=== PATIENT | male | born 1935 | race Caucasian/White ===

== ENCOUNTER 2017-08-14 14:28 | Observation (INO) | payer OTHER ==
[~2017-08-14] VITALS: Ht 180.3 cm; Wt 124.7 kg
--- NOTE | ~2017-08-14 | HC ---
[facility] [place] [address] CONSULTATION Name: ANDRES ESTRADA Room #: 361-[facility] Caleb MKathleen#: [id number] Admission: 08/14/17 Attend Phys: Evangelina Shane Discharge: 08/15/17 Date of : 34 Report #: [id number] THIS REPORT FOR: //name// CC: Carl Mckeon FAM unknown PRIMARY CARE PHYSICIAN: Dr. Carl Mckeon. REFERRAL PHYSICIAN: Dr. Piyush Feliciano. REASON FOR REFERRAL: Ongoing management of chronic respiratory failure. HISTORY OF PRESENT ILLNESS: The patient is an 82-year-old -Ivorian male who was admitted with an obstruction of the Driver catheter. He has chronic respiratory failure, on nocturnal ventilation. A pulmonary consultation was requested. Details of his past medical history limited. We are awaiting records from [facility]. The patient has had a prolonged hospitalization in around 2017 due to respiratory complications. The patient subsequently underwent tracheostomy tube placement along with PEG tube. He is currently on nocturnal ventilation along with trach shield in the daytime. PAST MEDICAL HISTORY: Otherwise limited and as mentioned above. ALLERGIES: None to medications. MEDICATIONS: List reviewed in the MAR. FAMILY HISTORY: Unknown. SOCIAL HISTORY: He is with children. REVIEW OF SYSTEMS: Deferred as the patient is not verbal. PHYSICAL EXAMINATION: GENERAL: He is awake, in no apparent distress. He said he has a trach shield in place. He does not verbalize, does not answer to questions. VITAL SIGNS: Temperature is 100 degrees Fahrenheit, pulse is 80, respiratory rate is 20, blood pressure 110/71 mmHg, saturation 99%. HEENT: Unremarkable. NECK: Status post tracheostomy. CHEST: Breath sounds are fair with few scattered crackles. No wheezes. CARDIOVASCULAR: Normal S1, S2. There is no murmur or gallop. ABDOMEN: Soft, nontender. No organomegaly or masses felt. Status post PEG tube placement in the mid abdomen area. GENITOURINARY: Deferred. [facility] [address] [place] [address] CONSULTATION Name: ANDRES ESTRADA Room #: [address] [place] [address] Caleb M.R.#: [id number] Admission: 08/14/17 Attend Phys: Evangelina Shane Discharge: 08/15/17 Date of : 34 Report #: [id number] RECTAL: Deferred. EXTREMITIES: No edema, cyanosis or clubbing. LABORATORY DATA: Electrolytes are grossly unremarkable. Creatinine 1.0. WBC 12,300, hemoglobin 11.4. Chest x-ray is grossly unremarkable. Lung volumes are decreased bilaterally. Mild increase in cardiac silhouette. IMPRESSION: 1. Chronic respiratory failure, status post tracheostomy. He is on nocturnal ventilation, trach shield in the daytime. 2. Driver catheter obstruction. Status post Driver exchange earlier today. RECOMMENDATION: We will continue nocturnal ventilation, trach shield during the daytime. DVT and GI prophylaxis recommended. Thank you for this consultation. <ELECTRONICALLY SIGNED> By: Terry Mann MD 08/17/17 1407 1439 1808 Terry Mann MD /smith
--- NOTE | ~2017-08-14 | DSS ---
[facility] [place] [address] SHORT STAY SUMMARY Name: ANDRES ESTRADA Room #: 361-P [facility] Caleb MKathleen#: [id number] Admission: 08/14/17 Attend Phys: Evangelina Shane Discharge: 08/15/17 Date of : 34 Report #: [id number] THIS REPORT FOR: //name// CC: Carl HUNTER unknown CHIEF COMPLAINT: Driver obstruction. HISTORY OF PRESENT ILLNESS: The patient is an 82-year-old gentleman with respiratory failure and ventilator use from [facility], who was admitted for exchange of his Driver catheter. He had a long hospitalization at the end of 2016 due to respiratory failure requiring placement of a tracheostomy tube and PEG tube with ventilator use. He recently transferred about 2 weeks ago to [facility]. In recent days, he has had a lot of leakage around the Driver catheter with some purulent drainage, debris and blood at times. The staff was unable to exchange it, so he was admitted overnight for a Urology consultation due to the fact he was on a ventilator. PAST MEDICAL HISTORY: Chronic respiratory failure, ventilator dependent. PAST SURGICAL HISTORY: As above. FAMILY HISTORY: Unknown. SOCIAL HISTORY: Unknown. ALLERGIES: NONE. MEDICATIONS: Amlodipine, Risperdal, DuoNeb, Colace, metoprolol. REVIEW OF SYSTEMS: He is unable to give review. PHYSICAL EXAMINATION: VITAL SIGNS: Temperature 37.7, pulse 82, respirations 20, blood pressure 112/71, O2 sat 99% on ventilator. GENERAL: He is asleep. HEAD AND NECK: Unremarkable. Trach in place. LUNGS: Clear. HEART: Regular. ABDOMEN: Soft, normoactive bowel sounds. PEG tube. EXTREMITIES: No edema. HOSPITAL COURSE: He was brought in for Urology evaluation, Dr. Quintanilla saw him in consultation, was able to exchange the Driver catheter at the bedside. A urinalysis was obtained and culture sent. He had white cells and bacteria along with blood. Empiric Cipro was started. Basic chemistry was unremarkable. He remained on the ventilator with a chest x-ray showing no infiltrate. His other [facility] [address] [place] [address] SHORT STAY SUMMARY Name: ANDRES ESTRADA Room #: 361-P [facility] M.R.#: [id number] Admission: 08/14/17 Attend Phys: Evangelina Shane Discharge: 08/15/17 Date of : 34 Report #: [id number] home medications were continued. He otherwise had an uneventful hospital course. DISPOSITION: He will be transferred back to [facility] on the ventilator status, resumption of diet and tube feeding. ACTIVITY: Bed rest and followup with Dr. Mckeon. DISCHARGE MEDICATIONS: He will resume all usual medications plus Cipro 500 mg twice a day for 7 days pending culture results. PROGNOSIS: Overall, prognosis is guarded due to his chronic respiratory failure. <ELECTRONICALLY SIGNED> By: Piyush Feliciano MD 08/16/17 1000 1126 1140 Piyush Feliciano MD /smith
--- NOTE | ~2017-08-14 | HC ---
[facility] [place] [address] CONSULTATION Name: ANDRES ESTRADA Room #: 361-P [facility] M.R.#: [id number] Admission: 08/14/17 Attend Phys: Evangelina Shane Discharge: Date of : 34 Report #: [id number] THIS REPORT FOR: //name// CC: Carl HUNTER unknown CHIEF COMPLAINT: Driver catheter. HISTORY OF PRESENT ILLNESS: The patient is an 82-year-old gentleman who is being seen today at the request of Dr. Feliciano for Driver catheter exchange. He was transferred from [facility] with a history of difficult catheter placement. No other history was provided. His Luda said the catheter had been in since April, although the nurses told me it had been in for about 2 weeks. On exam, he is on a ventilator. He is uncircumcised, normal phallus, no acute scrotal or penile pathology. There is an indwelling Driver catheter draining with purulent urine in the tubing. I deflated the balloon and under sterile conditions, I placed a 20-Croatian catheter into the bladder. I obtained about 1200 mL of urine, first 1100 mL was clear and the last 100 mL was purulent. I irrigated the ____ clear, 20 mL of sterile water was placed in the balloon. A drainage bag was applied. Going forward, I recommend the catheter be irrigated as needed. Certainly, this can be accomplished by the nurses and the nurses can exchange the Driver catheter in 3-4 weeks. <ELECTRONICALLY SIGNED> By: Piyush Quintanilla MD 08/15/17 1241 [id number] Piyush Quintanilla MD /nt
[2017-08-14] MEDS ORDERED: AMLODIPINE BESYL5 M1 PO (15:49)
[2017-08-14] MEDS ORDERED: PEPCID20 MG PO (15:49)
[2017-08-14] MEDS ORDERED: RISPERDAL 1 MG T1 MG PO (15:50)
[2017-08-14] MEDS ORDERED: APAP650 PO (15:51)
[2017-08-14] MEDS ORDERED: DUONEB 2.5-0.5 M3 ML INH (15:52)
[2017-08-14] MEDS ORDERED: ALBUTEROL2.5 MG/31 INH (15:55)
[2017-08-14] MEDS ORDERED: COLACE100 MG PO (15:56)
[2017-08-14] MEDS ORDERED: LOPRESSOR25 PO (15:57)
[2017-08-14 18:12] LABS: HEMATOCRIT 35.7 % (42.0-52.0); HEMOGLOBIN 11.4 gm/dL (14.0-18.0); MCH 27.3 pg (26.0-34.0); MCHC 31.8 g/dL (28.0-37.0); MCV 85.7 fL (80.0-100.0); RBC 4.17 mil/uL (4.50-6.00); RDW 16.4 % (10.5-14.5); WBC 12.3 thou/uL (4.0-11.0)
[2017-08-14 18:17] LABS: CALCIUM 10.1 mg/dL (8.5-10.1); POTASSIUM 4.1 mmol/L (3.5-5.1)
[2017-08-14 19:28] VITALS: BP 143/84
[2017-08-15 00:05] VITALS: BP 107/77
[2017-08-15 00:17] LABS: BACTERIA-REFLEX >30 Many /HPF (None Seen); URINE CLARITY TURBID; URINE RBC >20 Many /HPF (0-2); URINE WBC-REFLEX >25 Many /HPF (0-5)
[2017-08-15 00:18] LABS: CRYSTALS None Seen /LPF (None Seen)
[2017-08-15 00:19] LABS: CASTS None Seen /LPF (None Seen); SQUAMOUS None Seen /LPF (0-3)
[2017-08-15 00:20] LABS: URINE COLOR RED
[2017-08-15 00:21] LABS: URINE GLUCOSE-RANDOM* NEGATIVE (Negative)
[2017-08-15 00:22] LABS: URINE BILIRUBIN NEGATIVE (Negative); URINE BLOOD 3+ (Negative); URINE KETONES NEGATIVE (Negative)
[2017-08-15 00:23] LABS: URINE LEUKOCYTES-REFLEX 3+ (Negative); URINE NITRITE-REFLEX NEGATIVE (Negative); URINE PROTEIN (DIPSTICK) 3+ (Negative); URINE UROBILINOGEN 0.2 E.U./dl (0.2-1.0)
[2017-08-15 03:29] VITALS: BP 106/73
[2017-08-15 07:54] VITALS: BP 112/71
[2017-08-15] MEDS ORDERED: CIPRO500 MG PO (11:21)
[2017-08-15] MEDS ORDERED: ACETAMINOPHEN325 M1 PO (11:21)
== END 2017-08-15 14:55 ==
LOC: 4E 14:28 → 3W 14:28
PROVIDERS: Internal Medicine Geriatric Medicine
DX: T83.098A Other mechanical complication of other urinary catheter, initial encounter (principal); N40.0 Benign prostatic hyperplasia without lower urinary tract symptoms; J96.10 Chronic respiratory failure, unspecified whether with hypoxia or hypercapnia; E66.9 Obesity, unspecified; Z68.38 Body mass index [BMI] 38.0-38.9, adult; Z93.0 Tracheostomy status; Z99.11 Dependence on respirator [ventilator] status

== ENCOUNTER 2017-12-24 03:16 | Emergency (ER) | payer OTHER ==
[~2017-12-24] VITALS: Ht 185.4 cm; Wt 113.4 kg
[~2017-12-24 03:16] MED LIST: ACETAMINOP160 MG/51 PER TUBE; ACETAMINOPHEN325 M1 PO; ALBUTEROL2.5 MG/31 INH; AMLODIPINE BESYL5 M1 PO; AMOXICILLIN 50500 M1 PO; APAP650 PO; CIPRO500 MG PO; COLACE100 MG PO; DUONEB 2.5-0.5 M3 ML INH; ENOXAPARIN40 MG/0.1 SUBQ; JEVITY 1.5 CAL237 ML PER TUBE; LOPRESSOR25 PER TUBE; MIRALAX17 GM PER TUBE; NOVOLOG100 UNIT/1 SUBQ; PEPCID20 MG PER TUBE; PEPCID20 MG PO; RISPERDAL 1 MG T1 MG PO; SILACE50 MG/5 ML PER TUBE
[2017-12-24 04:23] LABS: URINE BLOOD 3+ (Negative); URINE CLARITY CLOUDY; URINE COLOR RED; URINE GLUCOSE-RANDOM* NEGATIVE (Negative); URINE KETONES TRACE (Negative); URINE PROTEIN (DIPSTICK) 3+ (Negative)
[2017-12-24 04:33] LABS: ICTOTEST (BILI CONFIRMATORY) Negative (Negative); URINE BILIRUBIN NEGATIVE (Negative); URINE LEUKOCYTES-REFLEX 3+ (Negative); URINE NITRITE-REFLEX POSITIVE (Negative)
[2017-12-24 04:34] LABS: CASTS None Seen /LPF (None Seen); MUCUS 0-3 Light strn/LPF (None Seen); SQUAMOUS None Seen /LPF (0-3)
[2017-12-24 04:35] LABS: BACTERIA-REFLEX 1-9 Few /HPF (None Seen); CRYSTALS None Seen /LPF (None Seen); URINE RBC >20 Many /HPF (0-2); URINE WBC-REFLEX >25 Many /HPF (0-5); WBC CLUMPS Moderate (None Seen)
== END 2017-12-24 07:37 | disposition home or self-care (01) ==
LOC: ER 03:16
PROVIDERS: Emergency Medicine
DX: R31.9 Hematuria, unspecified (principal); T83.098A Other mechanical complication of other urinary catheter, initial encounter; Z86.73 Personal history of transient ischemic attack (TIA), and cerebral infarction without residual deficits; I10 Essential (primary) hypertension; J44.9 Chronic obstructive pulmonary disease, unspecified; Z90.49 Acquired absence of other specified parts of digestive tract; Z86.718 Personal history of other venous thrombosis and embolism

== ENCOUNTER 2018-12-20 07:38 | Emergency (ER) | payer OTHER ==
[~2018-12-20] VITALS: Ht 180.3 cm; Wt 81.7 kg
[~2018-12-20 07:38] MED LIST changes: +OXYBUTYNIN 5 MG5 M2 PO
[2018-12-20] MEDS ORDERED: NORVASC5 MG PO (08:04)
[2018-12-20 08:24] LABS: ABSOLUTE NEUTROPHILS 2.9 thou/uL (1.4-8.2); BASOPHILS 0.3 % (0.0-2.0); BUN 12 mg/dL (7-18); CHLORIDE 99 mmol/L (98-107); CREATININE 0.7 mg/dL (0.7-1.3); EOSINOPHILS 4.5 % (0.0-3.0); GLUCOSE 88 mg/dL (74-106); HEMATOCRIT 30.9 % (42.0-52.0); HEMOGLOBIN 9.4 gm/dL (14.0-18.0); LYMPHOCYTES 16.4 % (24.0-44.0); MCH 27.3 pg (26.0-34.0); MCHC 30.3 g/dL (28.0-37.0); MONOCYTES 11.6 % (1.0-8.0); PLATELET COUNT 164 thou/uL (150-400); POLYS 67.2 % (36.0-66.0); POTASSIUM 3.8 mmol/L (3.5-5.1); RBC 3.44 mil/uL (4.50-6.00); RDW 15.8 % (10.5-14.5); SODIUM 141 mmol/L (136-145); WBC 4.4 thou/uL (4.0-11.0)
[2018-12-20 08:28] LABS: CO2 > 45 mmol/L (21-32)
[2018-12-20 08:33] LABS: APTT 27.6 Seconds (24.5-32.8); PROTIME 10.7 Seconds (9.3-11.4)
[2018-12-20 08:44] LABS: URINE BILIRUBIN NEGATIVE (Negative); URINE BLOOD 3+ (Negative); URINE CLARITY TURBID; URINE COLOR RED; URINE GLUCOSE-RANDOM* 1+ (Negative); URINE KETONES 1+ (Negative); URINE PROTEIN (DIPSTICK) 3+ (Negative); URINE SPECIFIC GRAVITY 1.015 (1.005-1.035)
[2018-12-20 08:45] LABS: URINE LEUKOCYTES-REFLEX 2+ (Negative); URINE NITRITE-REFLEX POSITIVE (Negative)
[2018-12-20 08:48] LABS: BACTERIA-REFLEX 1-9 Few /HPF (None Seen); CASTS None Seen /LPF (None Seen); CRYSTALS None Seen /LPF (None Seen); SQUAMOUS None Seen /LPF (0-3); URINE RBC >20 Many /HPF (0-2); URINE WBC-REFLEX 6-15 Few /HPF (0-5)
[2018-12-20] MEDS ORDERED: CIPRO500 MG/5 M PER TUBE (10:40)
[2018-12-20 12:32] VITALS: BP 120/56
== END 2018-12-20 12:35 ==
LOC: ER 07:38
PROVIDERS: Emergency Medicine
DX: R31.0 Gross hematuria (principal); I10 Essential (primary) hypertension; N40.0 Benign prostatic hyperplasia without lower urinary tract symptoms; J44.9 Chronic obstructive pulmonary disease, unspecified; Z90.49 Acquired absence of other specified parts of digestive tract; Z86.73 Personal history of transient ischemic attack (TIA), and cerebral infarction without residual deficits; Z86.718 Personal history of other venous thrombosis and embolism; Y81.2 Prosthetic and other implants, materials and accessory general- and plastic-surgery devices associated with adverse incidents

== ENCOUNTER 2020-02-18 16:55 | Inpatient (IN) | payer OTHER ==
[~2020-02-18] VITALS: Ht 182.9 cm; Wt 120.6 kg
--- NOTE | ~2020-02-18 | O ---
[facility] [place] [address] OPERATIVE REPORT Name: ANDRES ESTRADA Room #: 245-P ADM IN M.R.#: [id number] Admission: 02/18/20 Attend Phys: Wilbur Winslow Discharge: Date of : 34 Report #: [id number] THIS REPORT FOR: cc: Carl Mckeon MD, Christopher B. MD Patterson,Malcolm Moreno MD ~ CC: Carl Winslow DATE OF SERVICE: 02/22/2020 PREOPERATIVE DIAGNOSIS: Perforated viscus. POSTOPERATIVE DIAGNOSIS: Sigmoid perforation. OPERATION: 1. Sigmoidectomy and left colectomy with colostomy (Eren's). 2. Gastrostomy. SURGEON: Malcolm Lr MD ANESTHESIA: General. ESTIMATED BLOOD LOSS: 100 mL. SPECIMEN: Sigmoid and left colon. DESCRIPTION OF PROCEDURE: After informed consent was obtained, the patient was brought to the operating room and placed supine. SCDs were placed and working, preoperative antibiotics were administered, general anesthesia was induced. The abdomen was prepped and draped in the usual sterile fashion with chlorhexidine. Midline incision was made from the xiphoid to the umbilicus. Fascia was incised. There was an immediate morel of air. There was pus throughout the abdomen. I irrigated the abdomen. I then examined the right colon. This did not appear to be the area of perforation. I then examined the left colon. In the sigmoid colon, there was a small pinhole perforation. There was extruding fecal matter. There was surrounding inflammation and a rind. Therefore, the sigmoid colon and left colon were retracted medially. The white line of Toldt was incised. The colon was then mobilized medially. The splenic flexure was taken down using the LigaSure device to incise the splenocolic ligament and the lateral attachments of the splenic flexure. There was then good medial mobilization of the left sigmoid colon. The mesocolon was then ligated using the LigaSure device. There was good hemostasis. A ELENA blue load stapler was used to staple at the rectosigmoid. It was then stapled proximally at approximately the distal transverse colon. Specimen was then removed. The abdomen was copiously irrigated. [address] [address] OPERATIVE REPORT Name: ANDRES ESTRADA Room #: 245-P [facility] IN M.R.#: [id number] Admission: 02/18/20 Attend Phys: Wilbur Winslow Discharge: Date of : 34 Report #: [id number] A 12-Portuguese gastrostomy tube was placed into the previous gastrostomy tract. I incised the opening in the left upper quadrant of the abdomen. A 12-Portuguese catheter was then easily placed through the tract into the stomach. The balloon was inflated. A catheter was then brought up to the abdominal wall and it was sutured down with a 2-0 nylon suture. I then made an incision in the left lower quadrant to bring out the colostomy. The colostomy was then brought out through this incision. The abdomen was again copiously irrigated. The fascia was closed with a running 0 PDS. Skin was closed with heike. The colostomy was then matured in the left lower quadrant with a 4-0 Vicryl in a [place] colostomy type fashion. Sterile dressings were applied. COMPLICATIONS: None. DISPOSITION: The patient was taken to ICU in guarded condition. By: 1743 1831 Malcolm Lr MD /nt
[~2020-02-18 16:55] MED LIST changes: +CIPRO500 MG/5 M PER TUBE; +NORVASC5 MG PO
[2020-02-18 16:57] VITALS: BP 132/60
[2020-02-18 17:18] LABS: HEMATOCRIT 28.3 % (42.0-52.0); HEMOGLOBIN 8.4 gm/dL (14.0-18.0); MCHC 29.5 g/dL (28.0-37.0); MCV 84.7 fL (80.0-100.0); PLATELET COUNT 266 thou/uL (150-400); RBC 3.35 mil/uL (4.50-6.00); RDW 17.8 % (10.5-14.5)
[2020-02-18 17:38] LABS: ALBUMIN 2.7 g/dL (3.4-5.0); ANION GAP 8 mmol/L (7-16); BUN 58 mg/dL (7-18); CHLORIDE 114 mmol/L (98-107); CO2 35 mmol/L (21-32); CREATININE 1.4 mg/dL (0.7-1.3); DIRECT BILIRUBIN 0.2 mg/dL (<0.1-0.2); GLUCOSE 115 mg/dL (74-106); LIPASE 19 U/L (73-393); SGOT 27 U/L (15-37); SGPT 23 U/L (30-65); SODIUM 157 mmol/L (136-145); TOTAL BILIRUBIN 0.5 mg/dL (0.2-1.0); TOTAL PROTEIN 8.4 g/dL (6.4-8.2); TROPONIN-I <0.06 ng/mL (<0.06)
[2020-02-18 17:40] LABS: POTASSIUM 2.8 mmol/L (3.5-5.1)
[2020-02-18 17:54] LABS: ABSOLUTE NEUTROPHILS 6.5 thou/uL (1.4-8.2)
[2020-02-18 17:59] LABS: ANISOCYTOSIS 1+
[2020-02-18 18:02] LABS: URINE BILIRUBIN NEGATIVE (Negative); URINE BLOOD 1+ (Negative); URINE CLARITY CLEAR; URINE COLOR YELLOW; URINE GLUCOSE-RANDOM* NEGATIVE (Negative); URINE KETONES NEGATIVE (Negative); URINE LEUKOCYTES-REFLEX NEGATIVE (Negative); URINE NITRITE-REFLEX NEGATIVE (Negative); URINE PROTEIN (DIPSTICK) 2+ (Negative); URINE UROBILINOGEN 0.2 E.U./dl (0.2-1.0)
[2020-02-18 18:07] LABS: BE(vivo) 5.6 mmol/L (-2 to +3); HCO3 33.5 mmol/L (22.0-26.0); PO2 66.3 mmHg (80.0-100.0)
[2020-02-18 18:08] LABS: PCO2 71.5 mmHg (35.0-45.0); pH 7.288 (7.360-7.450)
[2020-02-18 18:13] LABS: SQUAMOUS 4-10 Moderate /LPF (0-3)
[2020-02-18 18:14] LABS: BACTERIA-REFLEX 1-9 Few /HPF (None Seen); CRYSTALS None Seen /LPF (None Seen); HYALINE CASTS 0-3 Few /LPF (None Seen); URINE RBC 0-2 Rare /HPF (0-2); URINE WBC-REFLEX 0-5 Rare /HPF (0-5)
[2020-02-19] VITALS (53 sets, daily range): BP systolic 94–140; BP diastolic 43–81
[2020-02-19 04:43] LABS: BE(vivo) 6.3 mmol/L (-2 to +3); HCO3 34.5 mmol/L (22.0-26.0); PCO2 77.3 mmHg (35.0-45.0); PO2 70.1 mmHg (80.0-100.0); sO2 90.8 % (92.0-98.0)
[2020-02-19 04:44] LABS: pH 7.268 (7.360-7.450)
[2020-02-19 06:02] LABS: HEMATOCRIT 26.1 % (42.0-52.0); HEMOGLOBIN 7.7 gm/dL (14.0-18.0); MCHC 29.5 g/dL (28.0-37.0); MCV 84.5 fL (80.0-100.0); RBC 3.09 mil/uL (4.50-6.00); RDW 17.1 % (10.5-14.5); WBC 8.5 thou/uL (4.0-11.0)
[2020-02-19 06:27] LABS: CALCIUM 8.9 mg/dL (8.5-10.1); CREATININE 1.3 mg/dL (0.7-1.3); POTASSIUM 3.1 mmol/L (3.5-5.1)
--- NOTE | 2020-02-19 07:35 | NUR ---
ASSESSMENT: PT REMAIN ALERT TIMES SELF, NODS APPROPRIATE YES/NO. WOUNDS ON SACRAL AND RIGHT OUTTER FOOT NOTED AND PICTURE TAKEN. SB-SR SVT PER MONITOR. SVT IS NOT SUSTAINED > 20'S SECS. PT DENIES CP. TRACH MASK WITH 15 LITERS OF OXYGEN. OXYGEN SATS 94-96% SUPER PUBIC CATHETER INTACT, DARK YELLOW URINE OUTPUT. 2 SMALL SOFT SEMI-LIQUID STOOLS THIS SHIFT. THIS AM'S ABG'S CALLED TO DR. PHILIP, NO ORDERS GIVEN. SLOW PROGRESS TOWARDS DC GOALS, WILL CONTINUE.
--- NOTE | 2020-02-19 07:38 | EKG ---
[facility] [address] [place] [address] ELECTROCARDIOGRAM REPORT Name: ANDRES ESTRADA Room #: 238-P ADM IN M.R.#: [id number] Admission: 02/18/20 Attend Phys: Wilbur Winslow Discharge: Date of : 34 Report #: [id number] THIS REPORT FOR: cc: Carl Mckeon MD, Christopher B. MD Lundgren, Craig H. MD [facility] ~ THIS REPORT FOR: //name// [facility] ED Test Date: 2020-02-18 Test Time: 17:32:26 Pat Name: ANDRES ESTRADA Department: Room: [facility] Gender: M Improvement Director: sanya : 1935 Requested By: Uday Ruiz Order Number: [id number] MD: Marc Aceves Measurements Intervals [place]ell Rate: 170 P: 0 AR: QRS: -41 QRSD: 97 T: 130 QT: 302 QTc: 508 Interpretive Statements Supraventricular tachycardia Left axis deviation LVH with secondary repolarization abnormality No previous ECG available for comparison Electronically Signed On 02-19-2020 7:38:11 CDT by Marc Aceves [email or web address] <ELECTRONICALLY SIGNED> By: Marc Aceves MD, FACC 02/19/20 0738 1732 173 Marc Aceves MD, [facility] /EPI
--- NOTE | 2020-02-19 13:46 | NUR ---
chart review. cm has tried calling listed x 2 and phone number is disconnected. spoke with bedside nurse, and only spoke with son for brief time. cm from [facility] snf ltc. has trach needing 15.0 l o2 trach mask. cm called [facility] to see if had different contact for family. will cont following as needed for dc needs. dcp from [facility] and back to [facility]
[2020-02-20] VITALS (19 sets, daily range): BP systolic 100–117; BP diastolic 43–56
--- NOTE | 2020-02-20 01:18 | NUR ---
DR HERNANDEZ ON THE UNIT. VERBAL ORDER TO DC ENHANCED PRECAUTION. SENIOR COMMISSIONS ANALYST AND CHARGE NURSE AWARE. MOVED TO 245.
[2020-02-20 06:29] LABS: ABSOLUTE NEUTROPHILS 9.4 thou/uL (1.4-8.2); BASOPHILS 0.1 % (0.0-2.0); HEMATOCRIT 25.7 % (42.0-52.0); HEMOGLOBIN 7.6 gm/dL (14.0-18.0); LYMPHOCYTES 1.7 % (24.0-44.0); MCH 25.4 pg (26.0-34.0); MCHC 29.6 g/dL (28.0-37.0); MCV 85.6 fL (80.0-100.0); MONOCYTES 3.6 % (1.0-8.0); PLATELET COUNT 244 thou/uL (150-400); POLYS 94.6 % (36.0-66.0); RDW 17.5 % (10.5-14.5); WBC 9.9 thou/uL (4.0-11.0)
[2020-02-20 06:49] LABS: CALCIUM 8.8 mg/dL (8.5-10.1); CREATININE 1.4 mg/dL (0.7-1.3)
--- NOTE | 2020-02-20 15:45 | NUR ---
chart review. trach with trach shield 15.0. noted per md notes placed in enhanced precautions. cm spoke with son delmi via phone call and he will call his mom sisi and give her update also. no anticipated dc over weekend. [facility], not taking admits over the weekend. will cont following as needed for dc needs.
[2020-02-21] VITALS (22 sets, daily range): BP systolic 104–129; BP diastolic 49–77
[2020-02-21 05:49] LABS: CALCIUM 9.1 mg/dL (8.5-10.1); CREATININE 1.5 mg/dL (0.7-1.3)
--- NOTE | 2020-02-21 06:31 | NUR ---
PATIENT TOLERATING TRACH MASK WELL, DESATS TO 80% AND REQUIRES SUCTIONING WITH MODERATE SECRETION RETURN. SB-SR ON THE MONITOR WITH PVC, PAC, PRESSURES MAINTAINING. PATIENT NODS/SHAKES HEAD TO QUESTIONS, FOLLOWS SIMPLE COMMANDS. MEPILEX PLACED TO BUTTOCKS FOR PREVENTION OF FURTHER BREAKDOWN.
[2020-02-22] VITALS (87 sets, daily range): BP systolic 83–126; BP diastolic 29–64
[2020-02-22 04:38] LABS: HEMATOCRIT 29.6 % (42.0-52.0); HEMOGLOBIN 8.7 gm/dL (14.0-18.0); MCHC 29.5 g/dL (28.0-37.0); MCV 84.8 fL (80.0-100.0); RBC 3.49 mil/uL (4.50-6.00); RDW 17.9 % (10.5-14.5); WBC 10.4 thou/uL (4.0-11.0)
[2020-02-22 05:02] LABS: CALCIUM 8.9 mg/dL (8.5-10.1); CREATININE 1.4 mg/dL (0.7-1.3)
[2020-02-22 05:04] LABS: POTASSIUM 2.5 mmol/L (3.5-5.1)
--- NOTE | 2020-02-22 09:18 | HC ---
[facility] [address] [address] CONSULTATION Name: ANDRES ESTRADA Room #: [facility] IN M.R.#: [id number] Admission: 02/18/20 Attend Phys: Wilbur Winslow Discharge: Date of : 34 Report #: [id number] THIS REPORT FOR: cc: Carl Mckeon MD,Buster Marshall MD, MD ~ CC: Carl Winslow DATE OF SERVICE: 02/21/2020 WOUND CARE CONSULTATION NOTE REASON FOR CONSULTATION: Sacral pressure sore. HISTORY OF PRESENT ILLNESS: The patient is an 84-year-old gentleman, transferred from [facility] with suspected aspiration. This 84-year-old gentleman has a history of immobility with left hemiparesis, status post cerebrovascular accident. He also has a history of deep vein thrombosis, fecal incontinence and urinary retention. Wound care is consulted due to sacral pressure sore. PAST MEDICAL HISTORY: CVA with left hemiparesis, history of deep vein thrombosis, hypertension, benign prostatic hypertrophy, COPD, respiratory failure with chronic trach dependence, rule out aspiration pneumonia, cardiovascular disease. ALLERGIES: No known drug allergies. MEDICATIONS: See chart. LABORATORY DATA: Albumin 2.7 (severe protein-calorie malnutrition). PHYSICAL EXAMINATION: GENERAL: Shows chronically ill-appearing, alert gentleman, ventilator dependence with tracheostomy. HEENT: Mucous membranes are moist. ABDOMEN: Obese, slightly firm with diastasis recti. The patient has fecal incontinence, rectal tube is present. EXTREMITIES: There is edema of the lower extremities. No wounds of the lower extremities. BACK: Examination of the patient's back shows chronic sacral pressure sore, which is mostly healed. On the left side, there is a small 1 x 1 cm stage 3 sacral pressure sore, treated with Mepilex foam pad and low air loss mattress. IMPRESSION: [facility] [address] [place] [address] CONSULTATION Name: ANDRES ESTRADA Room #: 245-P [facility] IN ..#: [id number] Admission: 02/18/20 Attend Phys: Wilbur Winslow Discharge: Date of : 34 Report #: [id number] 1. Respiratory failure with tracheostomy status. 2. Immobility. 3. History of cerebrovascular accident with left hemiparesis. 4. History of deep venous thrombosis. 5. Fecal incontinence with rectal tube. 6. Suprapubic catheter. 7. Chronic sacral stage III pressure sore, small and stable. PLAN: Offload sacral pressure sore with low air loss mattress, Mepilex foam border, change every other day. Wound care team will follow. <ELECTRONICALLY SIGNED> By: Buster Josue MD 02/22/20 0918 1027 192 Buster Josue MD /nt
--- NOTE | 2020-02-22 12:30 | NUR ---
Pt taken to radiology for CT of abdomen. Returned to room now. NSR with PAC. Cardizem at 7.5 mg/hr.
--- NOTE | 2020-02-22 12:56 | NUR ---
Call received from Dr Andersen in radiology approx five minutes ago. Reported that pt has perforated his bowel and to notify Irma of the results. Call placed to Dr Santiago's answering service and message left on the answering service.
--- NOTE | 2020-02-22 13:01 | NUR ---
Call returned from Dr Santiago. Read CT results. Reviewed current antibiotics. Stated to have Dr Winslow select a surgeon. Page already has been placed to Dr Winslow's numeric pager. Awaiting call back.
--- NOTE | 2020-02-22 13:08 | NUR ---
Second page made to Dr Winslow's numeric pager Dr Mann notified of CT scan results. No orders.
--- NOTE | 2020-02-22 13:47 | NUR ---
Text message sent to Dr Winslow to return call. Dr Winslow returned call. Informed of CT scan results. Dr Winslow stated he would call Dr Lr. Dr Carrillo notified of potential surgery and Dr Mann's concerns about the tracheostomy. Dr Carrillo stated anesthesia could call him on his cell phone to discuss tracheostomy ([phone]). Son's number provided to Dr Winslow and Dr Lr. Dr Lr going to call son (Liu).
--- NOTE | 2020-02-22 14:35 | NUR ---
Contacted nursing sorting supervisor to see if and laborer egg producing farm along with designated visitor (son) can see patient before going to surgery. Nursing sorting supervisor spoke with nursing center tutor Gissle who approved for , son and laborer egg producing farm to make 15 miniute visit. Call placed to and provided with that information.
--- NOTE | 2020-02-22 16:08 | NUR ---
IV nurse Mel attempted to place right IJ central line but was unable to get the line placed. Anesthesia has been here reviewing chart. Labs drawn including a type and screen and lactic acid. and administrative executive made it here for brief visit to see patient and for to sign consent forms. Pt sent to surgery at 1606 with anesthesiologist. Anesthesiologist was informed about tracheostomy and given phone number of Dr Carrillo if he has any questions.
--- NOTE | 2020-02-22 16:11 | NUR ---
ORDER NOTED FOR AN EMERGENT LINE PLACEMENT. A CENTRAL LINE ATTEMPTED PER POLICY ON THE RIGHT JUGULAR. UNABLE TO ADVANCE THE INTRODUCER ON 3 ATTEMPTS. ANESTHESIA AT BEDSIDE, A 3RD IV PLACED, ANESTHESIA WILL ATTEMPT A CENTRAL LINE PLACEMENT AFTER THE PATIENT IS INTUBATED IN OR. PATIENT TRANSFERED TO OR.
[2020-02-22 16:26] LABS: APTT 44.3 Seconds (24.5-32.8); INR 1.2; PROTIME 12.8 Seconds (9.3-11.4)
--- NOTE | 2020-02-22 18:00 | NUR ---
Pt remains in surgery. Unable to do restraint assessment.
--- NOTE | 2020-02-22 18:15 | NUR ---
Pt returned directed to ICU for recovery from surgery. Pt drowsy. Anesthesiologist, Dr Galaviz, reports no narcotics given during the surgery. Pt does not appear to be in pain at this time. Pt is drowsy. O2 sats marginal on 55% trach shield (91-92%). Respirations are shallow and tachypnic. NG tube connected to LIS with small amt green drainage in the tubine. Marginal urine output. Colostomy stoma is pink. No drainage in the ostomy bag. Suprapubic catheter is intact insertion. NO leaking from cathter site or urinary meatus noted at present. Afebrile. Dr Galaviz is at bedside. Potassium replacement for critically low level continues. Remains on Cardizem gtt at 7.5 mg/hr. Dressing intact with small amt serosanguineous drainage.
[2020-02-23] VITALS (47 sets, daily range): BP systolic 88–128; BP diastolic 29–66
--- NOTE | 2020-02-23 04:50 | NUR ---
ASUMED PT CARE @ 1899.CARDIZEM GTT OFF D/T LOW MAP. PATIENT NOTED TO BE TACHYPNIC.REPOSITIONED FOR COMFORT. URINE OUTPUT @1999 45ML. MAX MIMS NOTIFIED. ORDERS TO BLADDER SCAN AND IRRIGATE IF NEEDED. 16ML PER BLADDER SCAN, SMALL AMOUNT LEAK FROM AROUND SUPRAPUBIC CATHETER. DR. ROJO NOTIFIED @ 219. LASIX ORDERS GIVEN, CALL BACK IF NO OUTPUT.
[2020-02-23 07:33] LABS: HEMATOCRIT 29.8 % (42.0-52.0); HEMOGLOBIN 8.5 gm/dL (14.0-18.0); MCH 24.8 pg (26.0-34.0); MCHC 28.4 g/dL (28.0-37.0); MCV 87.1 fL (80.0-100.0); RBC 3.42 mil/uL (4.50-6.00); RDW 18.7 % (10.5-14.5); WBC 13.3 thou/uL (4.0-11.0)
[2020-02-23 07:45] LABS: CALCIUM 8.6 mg/dL (8.5-10.1); CREATININE 1.9 mg/dL (0.7-1.3); POTASSIUM 3.6 mmol/L (3.5-5.1)
[2020-02-23 14:25] LABS: CALCIUM 8.5 mg/dL (8.5-10.1); MAGNESIUM 2.1 mg/dL (1.8-2.4); POTASSIUM 3.4 mmol/L (3.5-5.1)
--- NOTE | 2020-02-23 15:14 | NUR ---
chart review. update sent to [facility]. cm unable to visit with murl. has trach mask, changes in bp. will cont following as needed for dc needs.
--- NOTE | 2020-02-23 17:13 | NUR ---
ASSUMED CARE OF PT AT 0645. DR CASTRO CHANGED TRACH TO 7 BOVONA AT THE BEDSIDE. SPO2 ON MONITOR NOT WORKING AFTER, CHANGED TO CONTINUOUS PULSE OX. WAIT FOR COLOSTOMY TO WORK BETTER BEFORE STARTING TUBE FEED. WAIT TO START TPN PER RENAL. SOME URINE NOTED COMING FROM PENIS DESPITE SUPRAPUBIC CATHETER. PAGE OUT TO RENAL FOR POTASSIUM REPLACEMENT ORDERS.
--- NOTE | 2020-02-23 20:22 | NUR ---
LTLIJ PLACED EARLIER IN SHIFT SUCCESSFULLY. PLEASE SEE INSERTION NOTE FOR DETAILS
[2020-02-24] VITALS (24 sets, daily range): BP systolic 93–122; BP diastolic 48–57
[2020-02-24 05:04] LABS: HEMATOCRIT 26.4 % (42.0-52.0); HEMOGLOBIN 7.3 gm/dL (14.0-18.0); MCH 24.3 pg (26.0-34.0); MCHC 27.5 g/dL (28.0-37.0); MCV 88.3 fL (80.0-100.0); PLATELET COUNT 215 thou/uL (150-400); RDW 18.9 % (10.5-14.5); WBC 15.6 thou/uL (4.0-11.0)
[2020-02-24 05:07] LABS: ALBUMIN 1.8 g/dL (3.4-5.0); CALCIUM 8.4 mg/dL (8.5-10.1); CREATININE 2.6 mg/dL (0.7-1.3); MAGNESIUM 2.1 mg/dL (1.8-2.4); POTASSIUM 3.6 mmol/L (3.5-5.1); TOTAL BILIRUBIN 0.3 mg/dL (0.2-1.0); TOTAL PROTEIN 6.6 g/dL (6.4-8.2)
[2020-02-24 05:32] LABS: BE(vivo) -3.4 mmol/L (-2 to +3); HCO3 27.4 mmol/L (22.0-26.0); PCO2 96.6 mmHg (35.0-45.0); PO2 78.3 mmHg (80.0-100.0); pH 7.071 (7.360-7.450); sO2 88.7 % (92.0-98.0)
--- NOTE | 2020-02-24 06:33 | NUR ---
CRRITICAL ABG VALUES CALLED TO DR. ROJO. NEW ORDERS TO GIVE 2 AMPS BICARB AND RECHECK ABGs IN 4 HOURS.URINE OUTPUT 60ML FROM SUPRAPUBIC CATH OVERNIGHT AND 2 INCONTINCE EPISODES REPORTED ALSO. NO FURTHER OREDRS AT THIS TIME, ORDERS IMPLEMENTED.
[2020-02-24 09:14] LABS: ABSOLUTE NEUTROPHILS 14.7 thou/uL (1.4-8.2); ANISOCYTOSIS 2+; HYPOCHROMASIA SLIGHT; NUCLEATED RBCS 2 /100WBC; PLATELET ESTIMATE NORMAL
[2020-02-24 10:49] LABS: BE(vivo) -1.5 mmol/L (-2 to +3); HCO3 29.2 mmol/L (22.0-26.0); PO2 105.7 mmHg (80.0-100.0)
[2020-02-24 10:52] LABS: PCO2 100.3 mmHg (35.0-45.0); pH 7.082 (7.360-7.450)
--- NOTE | 2020-02-24 11:15 | NUR ---
ASSUMED CARE @ 0700 02/24/20, PT ASSESSMENTS AND VSS COMPLETE PER ICU PRT. DR PRITCHETT (NEPHROLOGY AT BEDSIDE), UO DISCUSSED, RN ORDERED TO PLACED MENDOZA IN ADDITION TO THE SUPRAPUBIC CATH ALREADY IN PLACE, AND HE RECCOMMEND PALLIATIVE CARE IN THIS CASE. DR FINLEY @ BEDSIDE @ 1030, NO ORDERS PLACED IN. CRITICAL ABG'S CALLED TO DR ROJO @ 1055, ORDERS PLACED FOR INITIATION OF VENT, THIS IS COMMUNICATED TO THE RT. DR NUNO @ BEDSIDE @ 1107, DECLINE IN NEURO STATUS COMMUNICATED TO HIM, NO ORDERS RECIEVED AT THIS TIME.
[2020-02-24 12:51] LABS: BE(vivo) -1.3 mmol/L (-2 to +3); HCO3 25.4 mmol/L (22.0-26.0); PCO2 53.2 mmHg (35.0-45.0); PO2 317.6 mmHg (80.0-100.0); sO2 99.7 % (92.0-98.0)
[2020-02-24 12:52] LABS: pH 7.296 (7.360-7.450)
[2020-02-24 15:21] LABS: PHOSPHORUS 4.4 mg/dL (2.5-4.9)
[2020-02-24 15:40] LABS: BE(vivo) 0 mmol/L (-2 to +3); HCO3 24.5 mmol/L (22.0-26.0); PCO2 38.7 mmHg (35.0-45.0); PO2 324.6 mmHg (80.0-100.0); pH 7.419 (7.360-7.450); sO2 99.7 % (92.0-98.0)
[2020-02-25] VITALS (25 sets, daily range): BP systolic 90–130; BP diastolic 49–65
--- NOTE | 2020-02-25 01:57 | NUR ---
ASSUMED PT CARE AT 1900. VSS, PT OPENS EYES TO STERNAL RUB. PT NOT SEDATED. PT INITIAL FIO2 WAS 95% AT THE START OF SHIFT. O2 TITRATED DOWN TO 50% AND PT IS TOLERATING THIS WELL, SATS 100%. 100MG OF LASIX GIVEN AT 2100. PT NOT MAKING URINE; NEPHROLOGY AWARE. AVERAGE U/O IS ABOUT 5ML/HR EVEN AFTER LASIX DOSE. PT IS HOWEVER STABLE, CODE STATUS NOW DNR. WILL CONTINUE TO MONITOR.
[2020-02-25 06:07] LABS: HEMOGLOBIN 6.5 gm/dL (14.0-18.0)
[2020-02-25 06:11] LABS: HEMATOCRIT 21.8 % (42.0-52.0); MCH 24.7 pg (26.0-34.0); RBC 2.64 mil/uL (4.50-6.00); RDW 17.9 % (10.5-14.5); WBC 15.3 thou/uL (4.0-11.0)
[2020-02-25 06:12] LABS: MCV 82.5 fL (80.0-100.0)
[2020-02-25 06:27] LABS: CALCIUM 8.3 mg/dL (8.5-10.1); CREATININE 3.3 mg/dL (0.7-1.3)
[2020-02-25 06:36] LABS: POTASSIUM 2.7 mmol/L (3.5-5.1)
--- NOTE | 2020-02-25 10:46 | NUR ---
WOUND/OSTOMY NOTE; ASSESSED SACRAL WOUND W/ CENTRAL SUPPLY AIDE SHIKHA AND STUDENT NURSE, WOUND HEALING, NO S/S INFECTION, SCANT DRAINAGE, SEE PROCESS INTERVENTION FOR WOUND DETAILS, PHOTO TAKEN AND PLACED ON CHART, REMAINS ON VENT, OSTOMY POUCH INTACT, STOMA PINK VIABLE BUDDED W/ MUSHY BROWN STOOL NOTED, OSTOMY SUPPLIES PLACED AT BS, WILL CONT TO FOLLOW PRN RECOMMENDATIONS; CONT WOUND CARE PER DIRECTIONS DR BAZAN, RT OSTOMY CARE, CHANGE Q3-4 DAYS AND PRN, CHANTALE CUT TO FIT APPLIANCE CENTRAL SUPPLY AIDE AWARE
--- NOTE | 2020-02-25 10:50 | NUR ---
ASSUMED CARE @ 0700 02/25/20, PT ASSESSMENTS AND VSS COMPLETE PER ICU PROTOCOL. DR PRITCHETT TO THE BEDSIDE THIS AM, RN COMMUNICATES THE LOW POTASSIUM AND RE-INFORMS ABOUT LOW UO, ORDERS RECIEVED FOR K REPLACEMENT AND NO ORDERS RECEIEVED FOR LOW UO AT THIS TIME, RN TOLD TO MONITOR.
--- NOTE | 2020-02-25 16:06 | PATH ---
[facility] [address] [address] PATHOLOGY RPT PROCEDURE Name: MAIN SANTAMARIA Room #: 245-P ADM IN M.R.#: [id number] Admission: 02/18/20 Date of : 33 Discharge: Report #: [id number] Path Case #: [id number] [facility] Accession Number: [id number] . 01 Material submitted: . sigmoid colon - SIGMOID COLON . 01 Clinical history: . EXPLORATORY LAPAROTOMY HCAP, HYPERNATREMIA, HYPOKALEMIA . 02 Diagnosis: Large intestine, sigmoid colon, colectomy: - Transmural acute inflammation associated with defect, consistent with perforated viscus. - Multiple adhesions. - Marked acute serositis, multifocal. - Negative for dysplasia or malignancy. - Margins showing viable and reactive mucosa. (IUV:solvent station attendant; 02/25/2020) MBR 02/25/2020 1444 Local . 02 Electronically signed: . Gloria Tian MD, Pathologist NPI- [id number] . 01 Gross description: . The specimen is received in formalin, labeled "Main Santamaria, sigmoid colectomy" and consists of a markedly distended segment of colon measuring approximately 91.0 cm in length and ranging from 2.2 cm to 8.5 cm in diameter with minimal pericolic fat up to 3.5 cm. Both margins are closed with a staple line. There is extensive back to back wall adhesions. Adjacent to this adhesion, the bowel serosa is necrotic with a 0.3 cm transmural defect (inked black). Opening reveals an edematous pink-ramirez with marked reduced transverse folds and necrotic to pink-ramirez cobblestone at the site of the transmural defect. This area measures approximately 13.0 x 8.5 cm. No masses are identified. Hydraulic Bull Riveter Operator sections are submitted as follows: . A1: Margin nearest defect A2: 10 cm from first margin A3: Approximate 20 cm at site of transmural defect A4: Additional mucosa surrounding the defect A5: Bvqx-cs-pmed adhesion at 30 cm A6: 40 cm A7: 50 cm A8: 60 [place] [address] PATHOLOGY RPT PROCEDURE Name: MAIN SANTAMARIA Room #: 245-P ADM IN M.R.#: [id number] Admission: 02/18/20 Date of : 33 Discharge: Report #: [id number] Path Case #: [id number] A9: 70 cm A10: 80 cm A11: Margin approximate 91 cm (SDY; 02/24/2020) SYU/SYU 02/24/2020 1501 Local . 02 Pathologist provided ICD-10: K52.9, K65.8, K66.0 . 02 CPT . 333339 Specimen Comment: A courtesy copy of this report has been sent to [phone] Specimen Comment: Report sent to Performed at: [address], [place], [place] [id number] MD Nicolas Freitas MD Phone: [phone] Performed at: [address] [id number] MD Gloria Tian MD Phone: [phone]
[2020-02-26] VITALS (17 sets, daily range): BP systolic 93–138; BP diastolic 54–70
--- NOTE | 2020-02-26 06:31 | NUR ---
PT'S ASSESSMENT COMPLETED AND DOCUMENTED. VSS, AFEBRILE, HR 70's-130's AT TIMES.NEW ORDERS NOTED FOR MICAFUNGIN AND VANCO TROUGH THIS AM. COLOSTOMY FUNCTIONING WELL, 250ML OUTPUT EMPTIED THIS AM.NG OUTPUT 300ML, AND 100ML FROM BOTH SUPRAPUBIC CATH AND MENDOZA. DR. ROJO HERE ROUNDING ON PT. UPDATED ON POC AND CONDITION. NO NEW ORDERS AT THIS TIME.
--- NOTE | 2020-02-26 07:17 | NUR ---
PICC LINE NOTED TO BE POSITIONAL, HENCE NOT DRAWING BLOOD. NOTIFIED LAB EARLY THIS AM. CALLED THREE TIMES REQUESTING FOR LAB DRAW. LABS UNCOLLECTED AT THIS TIME. DAY RN AWARE. STATES SHE WILL CALL IF NOT COLLECTED SHORTLY
[2020-02-26 07:56] LABS: HEMATOCRIT 22.6 % (42.0-52.0); RBC 2.8 mil/uL (4.50-6.00)
[2020-02-26 07:58] LABS: HEMOGLOBIN 6.9 gm/dL (14.0-18.0); MCH 24.5 pg (26.0-34.0); MCHC 30.3 g/dL (28.0-37.0); MCV 80.8 fL (80.0-100.0); RDW 17.7 % (10.5-14.5); WBC 13.9 thou/uL (4.0-11.0)
[2020-02-26 08:24] LABS: ALBUMIN 1.6 g/dL (3.4-5.0); CREATININE 3.1 mg/dL (0.7-1.3); PHOSPHORUS 2.2 mg/dL (2.5-4.9); POTASSIUM 3.4 mmol/L (3.5-5.1)
--- NOTE | 2020-02-26 09:40 | NUR ---
Per ICU rounds 02/25-renal does not want to start TPN. Palliative care consult.
--- NOTE | 2020-02-26 16:57 | NUR ---
cm notified by dr vela that was consult and he will set up zoom meeting tomorrow to discuss palliative care with family rt pt prognosis. will cont following as needed for dc needs.
--- NOTE | 2020-02-26 19:08 | NUR ---
ASSUMED CARE @ 0700 02/26/20 PT ASSESSMENTS AND VSS COMPLETE PER ICU PROTOCOL. DR NUNO HERE DURING THIS SHIFT TO ROUND ON PATIENT, NO ORDERS RECIEVED. DR CHAUDHARI TO THE BEDSIDE THIS AFTERNOON, TALKED TO FAMILY ABOUT PALLIATIVE CARE, IT WAS CONCLUDED THAT A MEETING BE HELD FOR TOMMORROW WITH THE PT'S EXTENDED FAMILY TO DECIDE, NO TIME SET YET, OF PT WILL CALL TOMORROW AM WITH A SPECIFIC TIME. THIS IS COMMUNICATED TO DR NUNO, ORDERS TO DC FLUIDS RECIEVED. WILL CONTINUE TO MONITOR.
[2020-02-27] VITALS (18 sets, daily range): BP systolic 92–131; BP diastolic 55–72
--- NOTE | 2020-02-27 04:32 | NUR ---
PATIENT OPENING EYES TO PAINFUL STIMULI, DROWSY AND NOT SEDATED, DOES NOT FOLLOW COMMANDS AND NOT TRACKING.UOP 150ML FROM MENDOZA & 100ML FROM SUPRAPUBIC CATH. COLOSTOMY OUP 450ML AND 500ML FROM NG.REPOSITIONED FOR COMFORT.VSS WITH OCCASIONAL HIGH HR UPTO 130s & AFEBRILE.
[2020-02-27 05:11] LABS: CALCIUM 8.4 mg/dL (8.5-10.1); POTASSIUM 3.4 mmol/L (3.5-5.1)
[2020-02-27 05:31] LABS: HEMATOCRIT 21.6 % (42.0-52.0); HEMOGLOBIN 6.6 gm/dL (14.0-18.0)
[2020-02-27 05:34] LABS: MCHC 30.6 g/dL (28.0-37.0); MCV 78.4 fL (80.0-100.0); RBC 2.76 mil/uL (4.50-6.00); RDW 17.8 % (10.5-14.5); WBC 15.1 thou/uL (4.0-11.0)
[2020-02-27 10:38] LABS: BE(vivo) -4.9 mmol/L (-2 to +3); PCO2 35.8 mmHg (35.0-45.0); PO2 89.9 mmHg (80.0-100.0); pH 7.365 (7.360-7.450); sO2 96.7 % (92.0-98.0)
--- NOTE | 2020-02-27 12:39 | NUR ---
ASSUMED PATIENT AT 0600- FOUND PATIENT IN NO DISTRESS AND COMFORTABLE ON THE VENTILATOR. ABG ORDERED AND OBTAINED RESULTS GIVEN TO DR PHILIP. NO ISSUES AT THIS TIME. WILL CONTINUE TO MONITOR.
--- NOTE | 2020-02-27 14:05 | NUR ---
chart review. pt from [facility]. cm spoke with sisi, has not spoke with or zoom with dr vela today, but not going to make any decision about murl care until sunday or next week. thank you for calling per sisi. will cont following as needed for dc needs
--- NOTE | 2020-02-27 16:38 | NUR ---
PT LETHARGIC AND DROWSY. PT NOT FOLLOWING COMMANDS OR OPENING EYES TO STERNAL RUB. PT GIVEN 1 UNIT PRBC. POTASSIUM 40MEQ REPLACED. PT DAWSON WANTS TO HOLD OFF THE DECISION TO MAKE PT COMFORT CARE TILL SUNDAY SHE HAS TO INFORM OTHER FAMILY MEMBERS. CONTINUE TO MONITOR.
[2020-02-27 18:53] LABS: ALBUMIN 1.4 g/dL (3.4-5.0); CALCIUM 8.3 mg/dL (8.5-10.1); CREATININE 4.4 mg/dL (0.7-1.3); PHOSPHORUS 3.1 mg/dL (2.5-4.9); POTASSIUM 3.7 mmol/L (3.5-5.1)
[2020-02-28] VITALS (24 sets, daily range): BP systolic 97–122; BP diastolic 54–65
--- NOTE | 2020-02-28 03:35 | NUR ---
PATIENT LETHARGIC, OPENS LEFT EYE TO VIGOROUS STIMULATION.DOES NOT FOLLOW COMMANDS NOR ATTEMPT TO MOVE EXTREMITIES.VSS, AFEBRILE. DRESSING CHANGE TO COCCYX AND RIGHT LATERAL FOOT WOUNDS CHANGED. COLOSTOMY OUP 300ML, GREENISH GASTRIC CONTENT DRIANING FROM NG WHEN PATIENT TURNED TO LEFT SIDE, 250ML NOTED.
[2020-02-28 05:32] LABS: HEMOGLOBIN 7.2 gm/dL (14.0-18.0); MCH 24.8 pg (26.0-34.0); MCHC 31.2 g/dL (28.0-37.0); MCV 79.6 fL (80.0-100.0); RBC 2.88 mil/uL (4.50-6.00); RDW 17.4 % (10.5-14.5); WBC 14.3 thou/uL (4.0-11.0)
[2020-02-28 05:57] LABS: ALBUMIN 1.3 g/dL (3.4-5.0); CALCIUM 8.4 mg/dL (8.5-10.1); CREATININE 4.5 mg/dL (0.7-1.3); PHOSPHORUS 3.2 mg/dL (2.5-4.9); POTASSIUM 3.5 mmol/L (3.5-5.1)
[2020-02-28 07:32] LABS: BE(vivo) -6.6 mmol/L (-2 to +3); HCO3 20.7 mmol/L (22.0-26.0); PCO2 50.1 mmHg (35.0-45.0); sO2 95.9 % (92.0-98.0)
[2020-02-28 07:33] LABS: pH 7.233 (7.360-7.450)
--- NOTE | 2020-02-28 09:20 | NUR ---
ASSESSMENTS AND INTERVENTIONS DOCUCCUMENTED. DR. JACOBS AT BEDSIDE AROUND 0900. RN AND RENAL SPEAKING ABOUT PATIENT'S CURRENT STATUS AND POC.
[2020-02-29] VITALS (24 sets, daily range): BP systolic 93–122; BP diastolic 50–72
[2020-02-29 05:06] LABS: BE(vivo) -6.8 mmol/L (-2 to +3); HCO3 18.4 mmol/L (22.0-26.0); PCO2 35.2 mmHg (35.0-45.0); PO2 106.1 mmHg (80.0-100.0); pH 7.335 (7.360-7.450); sO2 97.6 % (92.0-98.0)
[2020-02-29 06:09] LABS: BASOPHILS 0.2 % (0.0-2.0); EOSINOPHILS 0.5 % (0.0-3.0); HEMATOCRIT 23.1 % (42.0-52.0); HEMOGLOBIN 7.2 gm/dL (14.0-18.0); LYMPHOCYTES 1.6 % (24.0-44.0); MCH 24.8 pg (26.0-34.0); MCHC 31.2 g/dL (28.0-37.0); MCV 79.5 fL (80.0-100.0); MONOCYTES 2.3 % (1.0-8.0); PLATELET COUNT 164 thou/uL (150-400); POLYS 95.4 % (36.0-66.0); RBC 2.91 mil/uL (4.50-6.00); RDW 17.7 % (10.5-14.5); WBC 16.8 thou/uL (4.0-11.0)
[2020-02-29 06:24] LABS: ALBUMIN 1.3 g/dL (3.4-5.0); CALCIUM 8.5 mg/dL (8.5-10.1); CREATININE 4.2 mg/dL (0.7-1.3); POTASSIUM 3.7 mmol/L (3.5-5.1); TOTAL BILIRUBIN 0.6 mg/dL (0.2-1.0); TOTAL PROTEIN 6.3 g/dL (6.4-8.2)
--- NOTE | 2020-02-29 06:50 | NUR ---
Patient not progressing towards plan of care as evidenced by state of minimal responsiveness. Patient did slept the majority of the night. He does smile with intermittently when nurse talks to him, however, no other signals of responding. Plan of care is to continue to monitor assessments q2-4 hours, vital signs q1 hour, and update family as indicated.
--- NOTE | 2020-02-29 18:44 | NUR ---
ASSESSMENTS AND INTERVENTIONS DOCCUMENTED. DR. PHILIP ROUNDING ON PATIENT. SON COMING TO VISIT SHORTLY THIS SHIFT. SON UPDATED AND EDUCATED ABOUT POC. BRIEFLY TALKING WITH SON. NO MAJOR CHANGES THIS SHIFT. PATIENT NOT PROGRESSING TOWARDS GOALS AT THIS TIME EVIDENCE BY STILL BEING DROWSY.
[2020-03-01] VITALS (24 sets, daily range): BP systolic 85–139; BP diastolic 53–93
[2020-03-01 04:24] LABS: ALBUMIN 1.3 g/dL (3.4-5.0); CALCIUM 8.7 mg/dL (8.5-10.1); CREATININE 4.4 mg/dL (0.7-1.3); PHOSPHORUS 4.4 mg/dL (2.5-4.9); POTASSIUM 3.6 mmol/L (3.5-5.1)
--- NOTE | 2020-03-01 07:28 | NUR ---
ASSESSMENTS CHARTED, MEDS CHARTED GIVEN. PATIENT RESPONDS TO PAIN AND GETTING HIS TEETH BRUSHED. TPN RUNNING DURING SHIFT. ON VENT, TRACH, PEG TUBE, COLOSTOMY, NG TUBE, MENDOZA, SUPER PUBIC CATHETER. WOUNDS REMAINED DRESSED DURING SHIFT. PLAN OF CARE IS FAMILY TO DECIDE IF HE WILL REMAIN A FULL CODE OR GO ON PALLIATIVE CARE. FALL PRECAUTIONS IN PLACE DURING SHIFT.
[2020-03-01 09:45] LABS: ABSOLUTE NEUTROPHILS 18.1 thou/uL (1.4-8.2); BASOPHILS 0.1 % (0.0-2.0); EOSINOPHILS 0.3 % (0.0-3.0); HEMATOCRIT 22.4 % (42.0-52.0); LYMPHOCYTES 1.7 % (24.0-44.0); MCH 24.9 pg (26.0-34.0); MCHC 31.1 g/dL (28.0-37.0); MCV 79.9 fL (80.0-100.0); MONOCYTES 2.2 % (1.0-8.0); PLATELET COUNT 153 thou/uL (150-400); POLYS 95.7 % (36.0-66.0); RDW 17.6 % (10.5-14.5); WBC 18.9 thou/uL (4.0-11.0)
--- NOTE | 2020-03-01 10:46 | NUR ---
OSTOMY CARE; POUCH LEAKING, NEW POUCH CHANTALE CUT TO FIT APPLIED, STOMA RED VIABLE BUDDED, W/ SCANT BLEEDING NOTED LOWER EDGE, SLIGHTLY ASHLY BASE OF PERISTOMAL SKIN, NO STING SKIN PREP APPLIED, ADAPT RING APPLIED UNDER WAFER, LIQ BROWN STOOL NOTED, SUPPLIES PLACED AT BS RECOMMENDATIONS; CHANTALE CUT TO FIT APPLIANCE, USE ADAPT RING UNDER WAFER, CHANGE Q3-4DAYS AND PRN EDITORIAL CLERK AWARE
[2020-03-01 11:08] LABS: BE(vivo) -8.3 mmol/L (-2 to +3); HCO3 17.8 mmol/L (22.0-26.0); PCO2 38.8 mmHg (35.0-45.0); PO2 93.2 mmHg (80.0-100.0); sO2 96.3 % (92.0-98.0)
[2020-03-01 11:09] LABS: pH 7.279 (7.360-7.450)
--- NOTE | 2020-03-01 13:22 | NUR ---
ON THE VENT PER TRACH. VITALS STABLE, NO PURPOSEFUL MOVEMENTS AND PATIENT NON VERBAL. ON TPN FOR NUTRITION. NGT TO LIS AND PEG TUBE CLAMPED BUT ORAL CONTRAST ADMINISTERED PER DR. FINLEY. ABD INCISION DRESSING REMOVED BY DR. FINLEY AND LEFT OMER WITH GHULAM IN PLACE. COLOSTOMY BAG CHANGED BY ISABELLA HILLS THIS MORNING. SUPRAPUBIC CATHETER AND MENDOZA NOTED WITH MARGINAL OUTPUT NOTED. CT ABD/PELVIS TO BE OBTAINED THIS AFTERNOON. NO FAMILY AT THE BEDSIDE AT THIS TIME.
--- NOTE | 2020-03-01 14:13 | NUR ---
chart review. noted family was going to wait and talk today about aggressive tx vs possible going palliative. cm provided verbal update to [facility]. will cont following as needed for dc needs.
--- NOTE | 2020-03-01 16:33 | NUR ---
FAXED CLINICAL UPDATE TO [facility] RECEIVED COMFIRMATION DP TO FOLLOW.
[2020-03-02] VITALS (12 sets, daily range): BP systolic 93–124; BP diastolic 56–72
[2020-03-02 02:48] LABS: ALBUMIN 1.4 g/dL (3.4-5.0); CALCIUM 8.9 mg/dL (8.5-10.1); PHOSPHORUS 4.7 mg/dL (2.5-4.9); POTASSIUM 3.6 mmol/L (3.5-5.1)
[2020-03-02 02:51] LABS: CREATININE 5.4 mg/dL (0.7-1.3)
--- NOTE | 2020-03-02 03:48 | NUR ---
This RN received a critical creatine value of 5.4 at 0251. This RN called this value to Carrie Tabares RN and received no new orders, or directions to call nephrology. Creat was 4.4 yesterday and with plan to go palliative care tomorrow, nephrology most likely wont change plan of care. Will continue to monitor.
--- NOTE | 2020-03-02 06:53 | NUR ---
No major chagnes throughout the night. Pt does not follow commands or track, but reacts to painful stimuli. Leg, scrotal, and upper extremity edema pitting. NG tube reinserted and confirmed with KUB. Colostomy and PEG site intact. Suprapubic catheter and urinary catheter in place. TPN running, VS stable. Family to make decisions today regarding withdrawing care. Dr. Solorio consulted.
--- NOTE | 2020-03-02 11:39 | NUR ---
cm left message for liaison with [facility] to see if murl stable for dc back if can cont the palliative vs cont tx. will cont following as needed for dc needs.
--- NOTE | 2020-03-02 11:40 | NUR ---
SON AT BEDSIDE. VISITNG PATIENT.
--- NOTE | 2020-03-02 13:20 | NUR ---
TALKED WITH DAWSON ON THE PHONE REGUARDING COMFORT MEASURES. SHE STATES SHE THINKS SHE IS READY. TOLD HER I COULD HAVE DR. CHAUDHARI CALL AND TALK WITH HER. SHE SAID THAT WOULD BE NICE. PAGE OUT TO DR. CHAUDHARI.
--- NOTE | 2020-03-02 13:41 | NUR ---
TALKED WITH DR. CHAUDHARI. HE IS GOING TO CALL AND TALK TO DAWSON THE PTS
--- NOTE | 2020-03-02 17:23 | NUR ---
PT STATUS HAS NOT CHANGED. PT IS OBTUNDED. LAB WORK IS LOOKING WORSE. TALKED WITH TODAY AFTER SON VISITED. SAID SHE WOULD LIKE TO TALK WITH DR REGARDING COMFORT CARE. DR. CHAUDHARI HAS ATTEMPTED TO CALL SEVERAL TIMES, I HAVE CALLED A FEW TIMES. UNABLE TO GET THROUGH TO . OF THIS TIME, NO ORDERS FOR COMFORT CARE.
--- NOTE | 2020-03-02 18:28 | NUR ---
JUST TALKED WITH ON THE PHONE. GAVE HER DR. CHAUDHARI NUMBER SO SHE COULD CONTACT HIM
--- NOTE | 2020-03-02 21:06 | NUR ---
This RN spoke to Luda, spouse regarding patient status. Understood that we had just turned patient to CPAP and he was now on blow by 35%. Assured patient was comfortable and I qould call when patient had passed.
--- NOTE | 2020-03-03 02:31 | NUR ---
This RN attempted to call [facility] regarding comfort care orders on 03/02/20 around 2029. Was instucted to only call within an hour of cardiac . Refused to take patient information, history, or give a referral number.
[2020-03-03 04:01] VITALS: BP 114/58
[2020-03-03 05:55] LABS: ALBUMIN 1.4 g/dL (3.4-5.0); CALCIUM 9.1 mg/dL (8.5-10.1); CREATININE 5.8 mg/dL (0.7-1.3); PHOSPHORUS 5.2 mg/dL (2.5-4.9); POTASSIUM 3.8 mmol/L (3.5-5.1)
--- NOTE | 2020-03-03 06:35 | NUR ---
Withdrew ventilator at approximately 2030 last night. Patient currently on the trach mask at 35% FiO2 and satting at 100% SaO2. Patient does not appear to be in discomfort or showing air hunger. Gave 2 doses of morphine and 1 dose of ativan right after taking patient off the ventilator but did not give any more after these. DC'd all medications, fluids, and removed the NG tube. Pt still has left jugular central line, PEG, colostomy, catheters, and tracheostomy in place. Will continue to monitor.
[2020-03-03 07:55] VITALS: BP 100/53
--- NOTE | 2020-03-03 10:27 | NUR ---
noted pt extubated on vent yesterday, on trach mask and on comfort care. cm spoke with bedside nurse and need to see if and when md are ready for murl to return to [facility].
[2020-03-03 12:00] VITALS: BP 101/49
--- NOTE | 2020-03-03 13:57 | NUR ---
9771 ATTEMPTED TO CONTACT FAMILY DAWSON ESTRADA TO INFORM HER OF PATIENT TRANSFER. NO ANSWER. WILL TRY AGAIN.
--- NOTE | 2020-03-03 15:15 | NUR ---
PATIENT TRANSFERS TO AT 1510. SPOUSE DAWSON HAS NOT RETURNED CALL YET.
--- NOTE | 2020-03-03 15:23 | NUR ---
cm spoke with hospitalist, depending on family decision, sosa will be ready to dc back to [facility] tomorrow with comfort care / hospice. cm provided update to [facility] snf liaison. will cont following for dc needs, and dr vela consulted.
[2020-03-03 15:30] VITALS: BP 121/57
--- NOTE | 2020-03-03 18:31 | NUR ---
Patient is on comfort care, no Oxygen supplement according to doctor's order. Doctor stated that the staff could give 2L if patient has signs of breathing distress.
[2020-03-04 00:10] VITALS: BP 134/74
[2020-03-04 04:48] VITALS: BP 133/67
--- NOTE | 2020-03-04 04:49 | NUR ---
ASSUMED PT CARE AT 2049. PT IS NON RESPONSIVE. PT HAS A TRACH. PT HAS A SUPERPUBIC CATH AND A MENDOZA CATH IN PLACE. PT HAS A COLOSTOMY AND A FEDDING TUBE ON THE RIGHT QUADRANT OF HIS ABDOMEN. DOWN THE MIDDLE OF HIS ABDOMEN HE HAS GHULAM. PT HAS GENERALIZED EDEMA. PT SEEMED TO BE USING HIS ACCESSORY MUSCLES SO MY CHARGE NURSE ADMINISTERED MORPHINE. PRAFO BOOTS ARE IN PLACE. MONITORED VITALS THROUGHOUT THE NIGHT. WILL CONTINUE TO MONITOR.
[2020-03-04 05:43] LABS: ALBUMIN 1.3 g/dL (3.4-5.0); CALCIUM 9.1 mg/dL (8.5-10.1); CREATININE 5.9 mg/dL (0.7-1.3); POTASSIUM 4.5 mmol/L (3.5-5.1)
[2020-03-04 07:30] VITALS: BP 89/54
--- NOTE | 2020-03-04 07:58 | NUR ---
THIS RN REVIEWED AND APPROVE OF CARE AND ASSESSMENT OF TECHNICIAN TRAINEE
--- NOTE | 2020-03-04 08:00 | NUR ---
Nutrition update: Note that pt now on comfort cares only. Ventilator was withdrawn on 03/02 per EMR. TPN was started earlier in the week for nutrition means, but now discontinued given comfort measures. Palliative care provider in to see pt yesterday; provider notes indicate pt appears within a few days of . RD will sign off given goals of care.
--- NOTE | 2020-03-04 10:36 | NUR ---
ASSUMED PT CARE THIS AM. PT SLEEPING, EYES FLUTTER. PT SEEMS TO BE IN NO PAIN AT THIS TIME. VITAL SIGNS TAKEN THIS MORNING, BLOOD PRESSURE DROPPING. BLOOD SUGAR TAKEN BEFORE SHIFT REPORT, BUT WAS TOLD BY DR TO NOT TAKE BLOOD SUGARS DUE TO PT BEING PALLIATIVE. BED BATH GIVEN THIS AM. PT IN SEMI-FOWLERS POSITION. WILL CONTINUE TO MONITOR.
--- NOTE | 2020-03-04 13:51 | NUR ---
CARE TEAM HAD INDICATED THAT PT IS CONFORT MEASURES HERE AT THE HOSPITAL AND THAT IT WOULDN'T BE APPROPRIATE FOR PT TO DISCHARGE BACK TO [facility]OSPICE PT IS FAIRLY IMMINENT. PHOTOGRAPHER'S ASSISTANT INDICATED THAT EXCEPTION COULD BE MADE FOR ADDITIONAL FAMILY TO VISIT. CM CALLED AND NOTIFIED PT'S SPOUSE AND SHE INDICATED THAT SHE CAN'T COME UNLESS SOMEONE BRINGS HER. CM NOTIFIED [employer] REGISTRAR AND THAT WAS CLEARED. NURSE TO NOTIFY DOOR SCREENERS. CM TO FOLLOW INDICATED WITH DC PLANNING.
== END 2020-03-04 17:31 | DRG 853 ==
LOC: ER 16:55 → EROBS 19:29 → ICU 19:29 → 4W 03-03 15:12
PROVIDERS: Hospitalist; Internal Medicine Nephrology; Internal Medicine Pulmonary Disease; Nurse Practitioner; Nurse Practitioner Family; Pediatrics; ADMIT Hospitalist; ATTEND Hospitalist
PROC: 0B9J8ZX Drainage of Left Lower Lung Lobe, Via Natural or Artificial Opening Endoscopic, Diagnostic (ICD-10-PCS; principal; 2020-02-19)
PROC: 0D1L0Z4 Bypass Transverse Colon to Cutaneous, Open Approach (ICD-10-PCS; 2020-02-22)
PROC: 0DBN0ZZ Excision of Sigmoid Colon, Open Approach (ICD-10-PCS; 2020-02-22)
PROC: 02HV33Z Insertion of Infusion Device into Superior Vena Cava, Percutaneous Approach (ICD-10-PCS; 2020-02-23)
PROC: 5A1955Z Respiratory Ventilation, Greater than 96 Consecutive Hours (ICD-10-PCS; 2020-02-24)
PROC: 30233N1 Transfusion of Nonautologous Red Blood Cells into Peripheral Vein, Percutaneous Approach (ICD-10-PCS; 2020-02-27)
PROC: 5A09357 Assistance with Respiratory Ventilation, Less than 24 Consecutive Hours, Continuous Positive Airway Pressure (ICD-10-PCS; 2020-03-02)
PROC: 5A09357 Assistance with Respiratory Ventilation, Less than 24 Consecutive Hours, Continuous Positive Airway Pressure (ICD-10-PCS; 2020-03-03)
DX: A41.9 Sepsis, unspecified organism (principal); L89.153 Pressure ulcer of sacral region, stage 3; K63.1 Perforation of intestine (nontraumatic); J69.0 Pneumonitis due to inhalation of food and vomit; N17.0 Acute kidney failure with tubular necrosis; J96.21 Acute and chronic respiratory failure with hypoxia; J96.22 Acute and chronic respiratory failure with hypercapnia; E43 Unspecified severe protein-calorie malnutrition; K65.9 Peritonitis, unspecified; I47.1 Supraventricular tachycardia; E87.0 Hyperosmolality and hypernatremia; G93.40 Encephalopathy, unspecified; K56.7 Ileus, unspecified; I69.354 Hemiplegia and hemiparesis following cerebral infarction affecting left non-dominant side; J44.9 Chronic obstructive pulmonary disease, unspecified; J45.909 Unspecified asthma, uncomplicated; D64.9 Anemia, unspecified; E87.6 Hypokalemia; N40.1 Benign prostatic hyperplasia with lower urinary tract symptoms; R33.8 Other retention of urine; N31.9 Neuromuscular dysfunction of bladder, unspecified; I10 Essential (primary) hypertension; E87.8 Other disorders of electrolyte and fluid balance, not elsewhere classified; R65.20 Severe sepsis without septic shock; E66.01 Morbid (severe) obesity due to excess calories; Z66 Do not resuscitate; Z51.5 Encounter for palliative care; Z20.828 Contact with and (suspected) exposure to other viral communicable diseases; Z68.36 Body mass index [BMI] 36.0-36.9, adult; Z90.49 Acquired absence of other specified parts of digestive tract; Z86.718 Personal history of other venous thrombosis and embolism
CPT/HCPCS: 10047; 10078; 50093; 50101; 50386; 51412; 51708; 51712; 56524; 56525; 56526; 56528; 57092; 57103; 62110; 62900; 85076